=== PATIENT | male | born 1985 | race Caucasian/White ===

== ENCOUNTER 2017-02-13 10:53 | Outpatient (CLI) | payer BC | END 2017-02-13 23:59 | DX: Z00.00 Encounter for general adult medical examination without abnormal findings (principal); R00.2 Palpitations; Z11.3 Encounter for screening for infections with a predominantly sexual mode of transmission ==

== ENCOUNTER 2017-03-16 11:22 | Outpatient (CLI) | payer BC | END 2017-03-16 11:23 | disposition home or self-care (01) | DX: R00.2 Palpitations (principal); I51.7 Cardiomegaly ==

== ENCOUNTER 2018-01-19 08:00 | Outpatient (CLI) | payer BC, OTHER ==
[2018-01-19 19:24] LABS: BASOPHILS % (AUTO) 0.7 %; EOSINOPHILS # (AUTO) 0.2 10^3/uL (0.0-0.7); EOSINOPHILS % (AUTO) 2.6 %; HGB - HEMOGLOBIN 15.9 g/dL (14.0-18.0); LYMPHOCYTES # (AUTO) 2.2 10^3/uL (1.5-3.5); LYMPHOCYTES % (AUTO) 33.5 %; MEAN CORPUSCULAR HEMOGLOBIN 30.1 pg (27.0-31.0); MEAN CORPUSCULAR VOLUME 88.7 fL (80.0-94.0); MEAN PLATELET VOLUME 8.9 fL (7.4-11.4); MONOCYTES # (AUTO) 0.7 10^3/uL (0.0-1.0); MONOCYTES % (AUTO) 10.1 %; NEUTROPHILS # (AUTO) 3.5 10^3/uL (1.5-6.6); NEUTROPHILS % (AUTO) 53.1 %; PLT - PLATELET COUNT 216 10^3/uL (130-450); RED BLOOD COUNT 5.27 10^6/uL (4.70-6.10); RED CELL DISTRIBUTION WIDTH 13.5 % (12.0-15.0); WHITE BLOOD COUNT 6.6 x10^3/uL (4.8-10.8)
[2018-01-19 19:40] LABS: ALBUMIN/GLOBULIN RATIO 1.7 (1.0-2.2); BILIRUBIN,TOTAL 0.7 mg/dL (0.2-1.0); CALCIUM 9.6 mg/dL (8.5-10.3); CRP - C-REACTIVE PROTEIN 1.5 mg/dL (0-1.0)
== END 2018-01-19 23:59 | disposition home or self-care (01) ==
LOC: LAB.WCP 08:00
PROVIDERS: ATTEND Family Medicine
DX: M25.50 Pain in unspecified joint (principal); R10.11 Right upper quadrant pain
CPT/HCPCS: 36415; 80053; 83690; 84550; 85025; 86140

== ENCOUNTER 2018-01-24 19:05 | Outpatient (CLI) | payer OTHER ==
--- NOTE | 2018-01-25 09:04 | XRAY Report ---
RIGHT HIP AND PELVIS: 01/24/2018 CLINICAL INDICATION: Right hip pain. FINDINGS: Frontal view of the hips and pelvis and frogleg lateral view of the right hip demonstrate no evidence of fracture or dislocation. The joint spaces are preserved. No foreign body is seen in the soft tissues. IMPRESSION: NORMAL RIGHT HIP AND PELVIS. TD: 01/25/2018 09:03
--- NOTE | 2018-01-25 09:08 | Ultrasound Report ---
RIGHT UPPER QUADRANT ULTRASOUND: 01/24/2018 CLINICAL INDICATION: Pain. TECHNIQUE: Real-time scanning was performed with account services representative static images obtained. FINDINGS: The liver measures 16.6 cm. Hepatic echogenicity is increased, compatible with fatty infiltration. No focal liver lesion or intrahepatic biliary dilatation is present. The common bile duct measures 3 mm. The gallbladder is normal. The right kidney measures 11.5 cm, and demonstrates no hydronephrosis. IMPRESSION: FATTY INFILTRATION OF THE LIVER. NO EVIDENCE OF CHOLELITHIASIS OR BILIARY OBSTRUCTION. TD: 01/25/2018 09:08
--- NOTE | 2018-01-25 09:11 | XRAY Report ---
COMPLETE LUMBAR SPINE: 01/24/2018 CLINICAL INDICATION: Low back pain. FINDINGS: AP, lateral, oblique views of the lumbar spine demonstrate normal height and alignment of the vertebral bodies. The disk spaces are preserved. There is no evidence of compression fracture. The bowel gas pattern is unremarkable. IMPRESSION: NORMAL LUMBAR SPINE. TD: 01/25/2018 09:10
== END 2018-01-24 23:59 ==
LOC: DI 19:05
PROVIDERS: ATTEND Family Medicine
DX: K76.0 Fatty (change of) liver, not elsewhere classified (principal); M54.5 Low back pain; M25.551 Pain in right hip; M79.9 Soft tissue disorder, unspecified
CPT/HCPCS: 72110; 76705

== ENCOUNTER 2018-02-20 12:40 | Outpatient (CLI) | payer OTHER ==
[2018-02-20] MEDS ORDERED: SINCALIDE 5 MCG VIAL ONE (13:55)
[2018-02-20] MEDS ORDERED: SINCALIDE 1.9 MCG in SODIUM CHLORIDE 0.9% 50 ML IV ONE (15:22)
--- NOTE | 2018-02-20 17:05 | Nuclear Medicine Report ---
EXAM: HEPATOBILIARY SCAN WITH CCK/KINEVAC ADMINISTRATION EXAM DATE: 02/20/2018 03:28 PM. CLINICAL HISTORY: ABDOMINAL PAIN. COMPARISON: Ultrasound exam dated 01/24/2018. TECHNIQUE: Following the intravenous administration of 4.8 mCi of Tc99m Mebrofenin, a hepatobiliary s can was done centered on the liver and gallbladder in multiple sequential images and projections. Following the intravenous administration of 1.9 mcg of CCK/ Kinevac over the course of approximately 60 minutes, dynamic imaging was done and the gallbladder ejection fraction was calculated. FINDINGS: Normal extraction of tracer from the blood pool indicating normal hepatocellular function. The liver size and shape is grossly within normal limits. There is activity visualized within the bile ducts, gallbladder, and small bowel within the first cleopatra r. With CCK administration, the gallbladder demonstrates an effective contraction. The gallbladder eject ion fraction is calculated to be 97%, well above the lower limit of normal of 38% for a 60-minute inj ection. The patient did not report symptoms after CCK administration. A small amount of transient enterogastric bile reflux is observed. IMPRESSION: 1. Patent cystic duct. 2. Patent common bile duct. 3. Negative for acute or chronic cholecystitis. 4. Positive for a small amount of transient enterogastric bile reflux. 5. Gallbladder ejection fraction of 97%. [facility] Referring Provider Line: [phone] SITE ID: [id number]
== END 2018-02-20 12:41 | disposition home or self-care (01) ==
LOC: DI 12:40
PROVIDERS: ATTEND Family Medicine
DX: K31.89 Other diseases of stomach and duodenum (principal); R10.11 Right upper quadrant pain
CPT/HCPCS: 78227; A9537; J7040

== ENCOUNTER 2018-02-21 17:37 | Outpatient (CLI) | payer OTHER ==
[2018-02-21] MEDS ORDERED: IOPAMIDOL-300 50 ML VIAL ONE (17:55)
[2018-02-21] MEDS ORDERED: IOPAMIDOL-300 100 ML VIAL ONE (17:55)
[2018-02-21] MEDS ORDERED: IOPAMIDOL-300 50 ML VIAL PO ONE (19:22)
[2018-02-21] MEDS ORDERED: IOPAMIDOL-300 100 ML VIAL IVP ONE (19:23)
--- NOTE | 2018-02-22 12:48 | CT Report ---
CT SCAN ABDOMEN AND PELVIS WITH CONTRAST: 02/21/2018 HISTORY: Right lower quadrant abdominal pain. TECHNIQUE: Contrast: 100 mL Isovue 300 IV and oral contrast. COMPARISON: HIDA scan 02/20/2018, abdomen ultrasound 01/24/2018. FINDINGS: Clear lung bases. Mild fatty infiltration of the liver is likely present. Otherwise negative liver, kidneys, spleen, pancreas, and adrenal glands. No radiopaque gallstones, hydronephrosis or renal stones. The appendix is unremarkable. The bladder appears normal. No pelvic organ pathology is appreciated. Minor sigmoid diverticulosis without diverticulitis. No free fluid, adenopathy, abnormal collections, free air, or other abnormality. Unremarkable bony structures. IMPRESSION: NEGATIVE CT SCAN ABDOMEN AND PELVIS. A SOURCE FOR PAIN IS NOT IDENTIFIED. CT DOSE REDUCTION STATEMENT In accordance with CT protocol optimization, one or more of the following dose reduction techniques were utilized for this exam: automated exposure control, adjustment of mA and/or KV based on patient size, or use of iterative reconstructive technique. TD: 02/22/2018 12:47 [email or web address]
== END 2018-02-21 17:38 | disposition home or self-care (01) ==
LOC: DI 17:37
PROVIDERS: ATTEND Family Medicine
DX: R10.31 Right lower quadrant pain (principal)
CPT/HCPCS: 74177; Q9967

== ENCOUNTER 2018-03-12 14:30 | Outpatient (CLI) | payer OTHER ==
--- NOTE | 2018-03-13 12:04 | MRI Report ---
EXAM: RIGHT HIP MRI WITHOUT CONTRAST EXAM DATE: 03/12/2018 03:22 PM. CLINICAL HISTORY: Severe right hip pain. COMPARISON: None. TECHNIQUE: Multiplanar, multisequence T1-weighted and fluid-sensitive, small ymmng-kk-yqla sequences of the hip and large alzdf-hp-iboo sequences of the pelvis without contrast. Other: None. FINDINGS: Bones: No fractures or subluxations. No marrow edema or bone lesions. Right Hip: No acetabular retroversion. Femoral head/neck offset is within normal limits. No effusion or loose bodies. The articular cartilage is intact. There is a linear area of increased T2 signal in the posterior superior labrum at 11 o'clock position (series 801, images 19 through 21). This is susp icious for a labral tear. The ligamentum teres is intact. Other Joints: The visualized lumbar spine, sacroiliac joints, symphysis pubis, and contralateral hip are unremarkable. Musculature: No edema or fatty atrophy. The gluteus medius and minimus tendons are normal. The visua lized hamstring tendons are normal. The ischiofemoral space is normal. Pelvic Cavity: The visualized viscera are unremarkable. No lymphadenopathy. No free fluid in the pelv is. Other: The visualized sciatic nerves are unremarkable. No bursitis. The subcutaneous tissues are unre markable. IMPRESSION: Potential tear of the posterior superior right labrum. MRI arthrogram could be used for c onfirmation if clinically indicated. [facility] Referring Provider Line: [phone] SITE ID: [id number]
== END 2018-03-12 14:31 | disposition home or self-care (01) ==
LOC: DI 14:30
PROVIDERS: ATTEND Internal Medicine
DX: M25.551 Pain in right hip (principal); S73.191A Other sprain of right hip, initial encounter

== ENCOUNTER 2018-06-20 15:18 | Outpatient (CLI) | payer OTHER ==
[2018-06-20] MEDS ORDERED: GADOBUTROL 10 MMOL/10 ML VIAL ONE (15:51)
[2018-06-20] MEDS ORDERED: GADOBUTROL 10 MMOL/10 ML VIAL IVP ONE (16:10)
--- NOTE | 2018-06-20 18:31 | MRI Report ---
Procedure Date: 06/20/2018 Accession Number: [id number] / [id number] Procedure: MRI - Hip RT W/WO CPT Code: FULL RESULT: EXAM: RIGHT HIP MRI WITHOUT AND WITH CONTRAST EXAM DATE: 06/20/2018 04:57 PM. CLINICAL HISTORY: Right hip soft tissue mass. COMPARISON: None. TECHNIQUE: Multiplanar, multisequence T1-weighted and fluid-sensitive, small bchsb-kv-glxl sequences of the hip and large ujkfg-pw-vbua sequences of the pelvis before and after administration of intravenous contrast. IV contrast: 9 mL Gadavist given IV, no reaction. Other: None. FINDINGS: Bones: No fractures or subluxations. No marrow edema or abnormal enhancement. No bone lesions. RIGHT Hip: No acetabular retroversion. Femoral head/neck offset is within normal limits. No effusion or loose bodies. The articular cartilage is intact. The labrum is intact as visualized on these large hqdfp-qk-ecgx images.. The ligamentum teres is intact. Other Joints: The visualized lumbar spine, sacroiliac joints, symphysis pubis, and contralateral hip are unremarkable. Musculature: No edema or fatty atrophy. The gluteus medius and minimus tendons are normal. The visualized hamstring tendons are normal. The ischiofemoral space is normal. Pelvic Cavity: The visualized viscera are unremarkable. No lymphadenopathy. No free fluid in the pelvis. Other: The visualized sciatic nerves are unremarkable. No bursitis. In the region of concern, located at the lateral margin of gluteal anatomy, there is a subcutaneous fusiform shaped circumscribed fat intensity structure measuring 6.9 x 3.0 cm transversely and extending for a cephalocaudal extent of 6.2 cm. No abnormal enhancement. This is located entirely in the subcutaneous fat. No involvement of the adjacent gluteal musculature. IMPRESSION: 1. Focal area of concern corresponds to a benign subcutaneous lipoma measuring 6.9 x 3.0 x 6.2 cm. No other worrisome imaging features. No significant arthritic changes in the hips on these large oylno-cb-ejim images. [facility]
== END 2018-06-20 15:19 | disposition home or self-care (01) ==
LOC: DI 15:18
PROVIDERS: ATTEND Orthopaedic Surgery
DX: D17.39 Benign lipomatous neoplasm of skin and subcutaneous tissue of other sites (principal)
CPT/HCPCS: 73721; 73723; A9585

== ENCOUNTER 2018-10-16 09:26 | Day surgery (SDC) | payer OTHER ==
[2018-10-16] MEDS ORDERED: CLINDAMYCIN 600 MG/50 ML 50 ML IV ONE (09:44)
--- NOTE | 2018-10-16 09:56 | ANESTHESIA ---
Pre-Anesthesia VS, & Labs - Diagnosis right hip soft tissue mass , lipoma - Procedure excision soft tissue mass, lipoma right hip Vital Signs: Temp Pulse Resp BP Pulse Ox 36.6 C 76 18 135/91 H 98 10/16/18 09:40 10/16/18 09:40 10/16/18 09:40 10/16/18 09:40 10/16/18 09:40 Height 5 ft 11 in - NPO >8 hours Home Medications and Allergies Home Medications: Ambulatory Orders Alprazolam [Alprazolam Xr] 0.5 mg PO 10/16/18 Alprazolam [Alprazolam Xr] 0.5 mg PO 10/16/18 Allergies/Adverse Reactions: Allergies Allergy/AdvReac Type Severity Reaction Status Date / Time amoxicillin Allergy Unknown Verified 10/16/18 09:36 Anes History & Medical History - Anesthetic History Anesthesia Complications: reports: No previous complications Family history of Anesthesia Complications: Denies Family history of Malignant Hyperthermia: Denies - Medical History Cardiovascular: reports: None Pulmonary: reports: Sleep apnea Gastrointestinal: reports: None Urinary: reports: None Musculoskeletal: reports: Chronic back pain, Other Endocrine/Autoimmune: reports: None Skin: reports: Rosacea Smoking Status: Never smoker - Surgical History Eyes Ears Nose Throat (EENT): Tonsil/Adenoidectomy Exam General: Alert, Oriented x3, Cooperative, No acute distress Dental: Other (cap, chipped teeth) Mouth Openin Fingerbreadth Neck Mobility: Normal Mallampati classification: II Thyromental Distance: greater than 6 cm Respiratory: Lungs clear, Normal breath sounds, No respiratory distress, No accessory muscle use Cardiovascular: Regular rate, Normal S1, Normal S2, No murmurs Mental/Cognitive Status: Alert/Oriented X3, Normal for patient Cognitive Status: Within normal limits Plan Anesthesia Type: General Consent for Procedure(s) Verified and Reviewed: Yes Code Status: Attempt Resuscitation ASA classification: 2-Mild systemic disease Is this case an emergency?: No
[2018-10-16] MEDS ORDERED: LACTATED RINGERS 1,000 ML IV ONE (10:05)
[2018-10-16] MEDS ORDERED: BUPIVACAINE 0.5% PF 30 ML VIAL ONE (10:31)
[2018-10-16] MEDS ORDERED: LIDOCAINE-MPF 2% 5 ML VIAL IM ONE (11:07)
[2018-10-16] MEDS ORDERED: MIDAZOLAM 2 MG/2 ML VIAL IVP ONE (11:07)
[2018-10-16] MEDS ORDERED: DEXAMETHASONE 4 MG/ML VIAL IVP ONE (11:07)
[2018-10-16] MEDS ORDERED: PROPOFOL 200 MG/20 ML VIAL IVP ONE (11:07)
[2018-10-16] MEDS ORDERED: KETOROLAC 30 MG/ML VIAL IVP ONE (11:07)
[2018-10-16] MEDS ORDERED: fentaNYL 100 MCG/2 ML VIAL IVP ONE (11:07)
[2018-10-16] MEDS ORDERED: ONDANSETRON 4 MG/2 ML VIAL IVP ONE (11:07)
[2018-10-16] MEDS ORDERED: ONDANSETRON 4 MG/2 ML VIAL IVP PRN (11:42)
[2018-10-16] MEDS ORDERED: oxyCODONE 5 MG TABLET PO PRN (11:42)
[2018-10-16] MEDS: HYDROmorphone 1 MG/ML CARPUJECT ONE ×2 (12:23→12:30)
[2018-10-16] MEDS ORDERED: HYDROcod/ACETAM 5/325 MG TABLET ONE (12:57)
[2018-10-16 13:51] VITALS: BP 120/87
--- NOTE | 2018-10-16 14:04 | OPERATIVE REPORT ---
DATE OF SERVICE: 10/16/2018 Physician: Verónica Machado MD PREOPERATIVE DIAGNOSIS: Right hip area soft tissue mass, suspected lipoma. POSTOPERATIVE DIAGNOSIS: Right hip area soft tissue mass, suspected lipoma. PROCEDURE PERFORMED: Excisional biopsy of right hip soft tissue mass. SURGEON: Verónica Machado MD ANESTHESIA: General by Clinton Littlejohn MD INDICATIONS FOR SURGERY Patient is a 33-year-old male who has had a slowly progressive enlarging mass over the right iliac crest area extending over the gluteus medius. This mass has been imaged and x- rays of his pelvis are normal. An MRI with contrast suggested a benign lipoma that is extrafascial i n the area of the gluteus medius. Because the patient has symptoms and because of the size, I recomm ended the patient undergo excisional biopsy. FINDINGS AT SURGERY: The patient's mass was somewhat fibrotic and it was well defined with a pseudoc apsule in its posterior aspect. On its more anterior aspect and superior aspect, it was more fibrous connected to surrounding tissue and not as well defined. The medial border was also somewhat well d efined, but not as much as the more posterior aspect. The tissue was not vascular and there was no i nflammatory edema around the area. The entire resection stayed extrafascial adjacent to the gluteus medius muscle. DESCRIPTION OF OPERATIVE PROCEDURE: The patient was taken to the operating room. He was given a gen eral anesthetic. He was then rolled up semilateral decubitus supported by a beanbag and his hip area was sterilely prepped and draped in standard fashion and isolated with sterile drapes and a laparoto my-type drape. A longitudinal incision was identified over the mass with a marking pen. After surgi nirmal timeout and without any infiltration, a direct incision was made approximately 3.5 to 4 inches in length and further deep dissection done with cautery with minimal bleeding down to the mass itself. From this point, blunt rakes were used in each flap of the incision to separate the mass from the paulson rrounding soft tissue and this was somewhat fibrotic somewhat adherent with a less well defined plane . Nevertheless, the superficial aspect of the mass was dissected free from tissue, and starting from distal to proximal the posterior surface was well demarcated and was able to be essentially bluntly scooped out with the digit and slightly adherent more superior on all sides as the mass went up, and superior more adherent and more fibrous attachments were found, but no vascular interaction to speak . Once the mass was nearly freely , suture tags were placed superior with a short cut on the s uture and medial with the long cut and the mass was sent for pathology exam. There was minimal bleed ing, but just enough soft tissue oozing that it was felt necessary to place a drain directly at the i nferior aspect of the incision. Cautery was used for small bleeders and flushing irrigation performe d. Closure was interrupted 0 Vicryl in the subcutaneous tissue and Monocryl closure in skin. The pa tient's wound was covered with a silver-containing dressing and then a pressure dressing of ABDs, and 4 x 4's, and anchoring tape for the drain and for the wound. No infiltration was performed before o r after the procedure, and the drain had been placed directly in line with the incision, and at surge ry a minimal amount of extra dissection was done in any of the planes beyond the realm of the mass. T he patient was taken to the recovery room in stable condition. ESTIMATED BLOOD LOSS: Minimal. COMPLICATIONS: None. COUNTS: Sponge and needle counts were correct. DRAINS: Drain placed was a small Hemovac. TD: 10/16/2018 13:41
== END 2018-10-16 09:27 | disposition home or self-care (01) ==
LOC: SDS 09:26
PROVIDERS: ATTEND Orthopaedic Surgery
PROC: 0JBL0ZZ Excision of Right Upper Leg Subcutaneous Tissue and Fascia, Open Approach (ICD-10-PCS; principal; 2018-10-16 10:30)
DX: M79.9 Soft tissue disorder, unspecified (principal); G47.30 Sleep apnea, unspecified
CPT/HCPCS: 27043; A9270; J1170; J7120

== ENCOUNTER 2019-04-09 17:40 | Emergency (ER) | payer OTHER ==
[2019-04-09 18:29] LABS: BASOPHILS % (AUTO) 0.7 %; EOSINOPHILS % (AUTO) 0.5 %; LYMPHOCYTES # (AUTO) 0.8 10^3/uL (1.5-3.5); LYMPHOCYTES % (AUTO) 17.3 %; MEAN CORPUSCULAR HEMOGLOBIN 30.9 pg (27.0-31.0); MEAN CORPUSCULAR HGB CONC 34.4 g/dL (32.0-36.0); MONOCYTES # (AUTO) 0.3 10^3/uL (0.0-1.0); MONOCYTES % (AUTO) 6.5 %; NEUTROPHILS # (AUTO) 3.6 10^3/uL (1.5-6.6); PLT - PLATELET COUNT 189 10^3/uL (130-450); RED BLOOD COUNT 5.19 10^6/uL (4.70-6.10); RED CELL DISTRIBUTION WIDTH 14.2 % (12.0-15.0); WHITE BLOOD COUNT 4.8 x10^3/uL (4.8-10.8)
--- NOTE | 2019-04-09 18:30 | ED Physician Documentation ---
PD HPI ABD PAIN - Stated complaint Stated Complaint: RT SIDE PX/NAUSEA - Chief complaint Chief Complaint: Abd Pain - History obtained from History obtained from: Patient - History of Present Illness Timing - onset: Other (He basically has chronic right upper quadrant pain that is worse after a big meal or after heavy eating. He has had it for years but is been worse over the last few months. He had a complete work-up last year with negative ultrasound, CT scan and HIDA scan as well as labs showing no elevation in liver enzymes or bilirubin he did have a fatty liver on the ultrasound. He is quite anxious, he is looked up a lot of things on [employer]. He is worried about his pancreas and his liver. He does note light-colored stools.) Review of Systems Constitutional: denies: Fever, Chills Cardiac: denies: Chest pain / pressure, Palpitations Respiratory: denies: Dyspnea, Cough PD PAST MEDICAL HISTORY - Past Medical History Cardiovascular: None Respiratory: Sleep apnea Endocrine/Autoimmune: None GI: None : None HEENT: None Psych: Anxiety Musculoskeletal: Chronic back pain, Other Derm: Rosacea - Past Surgical History Past Surgical History: No HEENT: Tonsil/Adenoidectomy - Present Medications Home Medications: Ambulatory Orders Medication Instructions Recorded Confirmed Alprazolam [Alprazolam Xr] 0.5 mg PO 10/16/18 - Allergies Allergies/Adverse Reactions: Allergies Allergy/AdvReac Type Severity Reaction Status Date / Time amoxicillin Allergy Unknown Verified 04/09/19 17:53 - Social History Does the pt smoke?: No Smoking Status: Never smoker Does the pt drink ETOH?: Yes ETOH Use: Other (He intermittently drinks alcohol heavily. He does not drink every day but when he does he has had 8-10 drinks.) Does the pt have substance abuse?: No - Immunizations Immunizations are current?: Yes PD ED PE NORMAL - Vitals Vital signs reviewed: Yes - General General: Alert and oriented X 3, No acute distress - HEENT HEENT: PERRL (non icteric) - Neck Neck: Supple, no meningeal sign, No bony TTP - Cardiac Cardiac: RRR, No murmur - Respiratory Respiratory: No respiratory distress, Clear bilaterally - Abdomen Abdomen: Normal bowel sounds, Non tender - Derm Derm: Normal color, Warm and dry - Extremities Extremities: No edema, No calf tenderness / cord - Neuro Neuro: Alert and oriented X 3, Normal speech Results - Vitals Vitals: Vital Signs - 24 hr 04/09/19 17:49 Temperature 37.1 C Heart Rate 116 H Respiratory 14 Rate Blood Pressure 185/106 H O2 Saturation 98 Oxygen O2 Source Room air - Labs Labs: Laboratory Tests 04/09/19 04/09/19 04/09/19 18:20 18:20 18:34 WBC 4.8 RBC 5.19 Hgb 16.0 Hct 46.7 MCV 90.0 MCH 30.9 MCHC 34.4 RDW 14.2 Plt Count 189 MPV 8.0 Neut # (Auto) 3.6 Lymph # (Auto) 0.8 L Coos # (Auto) 0.3 Eos # (Auto) 0.0 Baso # (Auto) 0.0 Absolute Nucleated RBC 0.00 Nucleated RBC % 0.0 Sodium 135 Potassium 3.5 Chloride 98 L Carbon Dioxide 25 Anion Gap 12.0 BUN 10 Creatinine 0.9 Estimated GFR (MDRD) 97 Glucose 171 H Calcium 9.0 Total Bilirubin 1.1 H AST 33 ALT 33 Alkaline Phosphatase 54 Total Protein 7.8 Albumin 4.5 Globulin 3.3 Albumin/Globulin Ratio 1.4 Lipase 25 Urine Color YELLOW Urine Clarity CLEAR Urine pH 6.0 Ur Specific Paicines 1.015 Urine Protein NEGATIVE Urine Glucose (UA) NEGATIVE Urine Ketones 15 H Urine Occult Blood NEGATIVE Urine Nitrite NEGATIVE Urine Bilirubin NEGATIVE Urine Urobilinogen 0.2 (NORMAL) Ur Leukocyte Esterase NEGATIVE Ur Microscopic Review NOT INDICATED Urine Culture Comments NOT INDICATED - Rads (name of study) RUQ sono Radiology: Final report received (fatty liver, NAD) PD MEDICAL DECISION MAKING - ED course ED course: This is a 34-year-old gentleman with chronic right upper quadrant pain which is likely due to combination of intermittent alcohol binging and fatty liver. Previous work-ups were negative and there is no other acute pathology seen on today's ultrasound or labs. Departure - Departure Disposition: 01 Home, Self Care Clinical Impression: RUQ pain, Fatty liver Condition: Good Record reviewed to determine appropriate education?: Yes Instructions: ED Abdominal Pain Unkn Cause Male Comments: Avoid alcohol and Tylenol. Follow-up with your physician for further evaluation and treatment. Return for new or worsening symptoms. Your blood pressure was elevated today on check into the emergency department. This does not mean that you have hypertension, it is a common phenomenon to come to the emergency department and have elevated blood pressure. I recommend that you see your primary care physician within the week to have it rechecked when you are feeling better.
[2019-04-09 18:42] LABS: BILIRUBIN,URINE NEGATIVE (NEGATIVE); CLARITY,URINE CLEAR (CLEAR); GLUCOSE, URINE (UA) NEGATIVE (NEGATIVE); KETONES,URINE (UA) 15 mg/dL (NEGATIVE); LEUKOCYTE ESTERASE, URINE NEGATIVE (NEGATIVE); NITRITE,URINE NEGATIVE (NEGATIVE); OCCULT BLOOD,URINE NEGATIVE (NEGATIVE); PROTEIN,URINE NEGATIVE (NEGATIVE); UROBILINOGEN,URINE 0.2 (NORMAL) E.U./dL (NORMAL)
[2019-04-09 18:43] LABS: ALBUMIN 4.5 g/dL (3.2-5.5); ALBUMIN/GLOBULIN RATIO 1.4 (1.0-2.2); BILIRUBIN,TOTAL 1.1 mg/dL (0.2-1.0); CREATININE 0.9 mg/dL (0.6-1.2); TOTAL PROTEIN 7.8 g/dL (6.7-8.2)
--- NOTE | 2019-04-09 19:36 | Ultrasound Report ---
Reason: RUQ pain Procedure Date: 04/09/2019 Accession Number: [id number] / [id number] Procedure: US - Abdomen Limited CPT Code: FULL RESULT: EXAM: ABDOMEN ULTRASOUND LIMITED, RUQ EXAM DATE: 04/09/2019 07:11 PM. CLINICAL HISTORY: RUQ pain. COMPARISON: ABDOMEN LIMITED 01/24/2018 7:43 PM. TECHNIQUE: Real-time scanning was performed with static images obtained. FINDINGS: Liver: Normal in size , echogenic. 16.8 cm. Main portal vein flow: Hepatopetal. Gallbladder: Normal. No stones, wall thickening, or sonographic De Anda's sign. Biliary System: CBD measures 3 mm. No intrahepatic or extrahepatic ductal dilatation. Right kidney: 12.4 cm. Unremarkable IMPRESSION: 1. Fatty infiltrated normal sized liver. 2. No cholelithiasis or cholecystitis. [facility]
[2019-04-09 19:49] VITALS: BP 155/99
== END 2019-04-09 19:49 | disposition home or self-care (01) ==
LOC: ED 17:40
DX: R10.11 Right upper quadrant pain (principal); K76.0 Fatty (change of) liver, not elsewhere classified
CPT/HCPCS: 36415; 76705; 80053; 81001; 81003; 83690; 85025; 87086; 99282; 99283

== ENCOUNTER 2019-04-23 10:13 | Outpatient (CLI) | payer OTHER ==
--- NOTE | 2019-04-23 11:28 | XRAY Report ---
Reason: RIB PAIN,RIGHT SIDED Procedure Date: 04/23/2019 Accession Number: [id number] / [id number] Procedure: WCP - Chest 2 View X-Ray CPT Code: 51320 FULL RESULT: EXAM: CHEST RADIOGRAPHY EXAM DATE: 04/23/2019 10:24 AM. CLINICAL HISTORY: Rib pain, right-sided. COMPARISON: None. TECHNIQUE: 2 views. FINDINGS: Lungs/Pleura: No focal opacities evident. No pleural effusion. No pneumothorax. Normal volumes. Mediastinum: Heart and mediastinal contours are unremarkable. Other: No displaced fracture is detected. IMPRESSION: Normal 2-view chest radiography. [facility]
== END 2019-04-23 10:14 | disposition home or self-care (01) ==
LOC: DI.WCP 10:13
PROVIDERS: ATTEND Family Medicine
DX: R07.81 Pleurodynia (principal)
CPT/HCPCS: 71046

== ENCOUNTER 2020-08-26 17:36 | Outpatient (CLI) | payer OTHER | END 2020-08-26 17:37 | disposition home or self-care (01) | LOC: COV 17:36 | PROVIDERS: ATTEND Family Medicine | DX: U07.1 COVID-19 (principal) ==

== ENCOUNTER 2020-09-13 15:39 | Outpatient (CLI) | payer OTHER ==
--- NOTE | 2020-09-13 15:51 | XRAY Report ---
PROCEDURE: Chest 2 View X-Ray INDICATIONS: COVID-19 INFECTION TECHNIQUE: 2 view(s) of the chest. COMPARISON: 2 views of the chest dated 04/23/2019. FINDINGS: Surgical changes and devices: None. Lungs and pleura: No pleural effusions or pneumothorax. Lungs are clear. Mediastinum: Mediastinal contours are normal. Heart size is normal. Bones and chest wall: No suspicious bony abnormalities. Soft tissues appear unremarkable. IMPRESSION: No acute cardiopulmonary findings. Reviewed by: Alicia Elizabeth MD on 09/13/2020 3:50 PM PDT Approved by: Alicia Elizabeth MD on 09/13/2020 3:50 PM PDT Station ID: [id number]
== END 2020-09-13 23:59 | disposition home or self-care (01) ==
LOC: DI.S 15:39
PROVIDERS: ATTEND Emergency Medicine
DX: U07.1 COVID-19 (principal)

== ENCOUNTER 2020-10-14 08:00 | Outpatient (CLI) | payer OTHER ==
[2020-10-14 12:18] LABS: BASOPHILS % (AUTO) 0.8 %; EOSINOPHILS # (AUTO) 0.1 10^3/uL (0.0-0.7); EOSINOPHILS % (AUTO) 1.9 %; HGB - HEMOGLOBIN 15.2 g/dL (14.0-18.0); LYMPHOCYTES # (AUTO) 1.7 10^3/uL (1.5-3.5); LYMPHOCYTES % (AUTO) 34.6 %; MEAN CORPUSCULAR HEMOGLOBIN 30.2 pg (27.0-31.0); MEAN CORPUSCULAR HGB CONC 33.7 g/dL (32.0-36.0); MEAN CORPUSCULAR VOLUME 89.7 fL (80.0-94.0); MEAN PLATELET VOLUME 11.1 fL (7.4-11.4); MONOCYTES # (AUTO) 0.5 10^3/uL (0.0-1.0); MONOCYTES % (AUTO) 9.8 %; NEUTROPHILS # (AUTO) 2.5 10^3/uL (1.5-6.6); NEUTROPHILS % (AUTO) 52.3 %; PLT - PLATELET COUNT 208 10^3/uL (130-450); RED BLOOD COUNT 5.03 10^6/uL (4.70-6.10); WHITE BLOOD COUNT 4.8 x10^3/uL (4.8-10.8)
[2020-10-14 12:47] LABS: ALBUMIN 4.7 g/dL (3.2-5.5); ALBUMIN/GLOBULIN RATIO 1.6 (1.0-2.2); BILIRUBIN,TOTAL 0.7 mg/dL (0.2-1.0); CALCIUM 9.3 mg/dL (8.5-10.3); TOTAL PROTEIN 7.6 g/dL (6.7-8.2)
== END 2020-10-14 23:59 | disposition home or self-care (01) ==
LOC: LAB.WCP 08:00
PROVIDERS: ATTEND Family Medicine
DX: R07.81 Pleurodynia (principal)
CPT/HCPCS: 36415; 80053; 85025

== ENCOUNTER 2021-02-03 07:00 | Outpatient (CLI) | payer OTHER | END 2021-02-03 23:59 | disposition home or self-care (01) | LOC: COV 07:00 | PROVIDERS: ATTEND Family Medicine | DX: M79.10 Myalgia, unspecified site (principal); R53.83 Other fatigue; R68.83 Chills (without fever); Z20.822 Contact with and (suspected) exposure to COVID-19 ==